=== PATIENT | female | born 1995 | race Caucasian/White ===

== ENCOUNTER 2023-02-08 06:39 | Day surgery (SDC) | payer OTHER ==
[~2023-02-08] VITALS: Ht 171.4 cm; Wt 76.7 kg
[2023-02-08] MEDS ORDERED: fentaNYL citrate 0.05 MG/ML VIAL ONE (08:05)
[2023-02-08] MEDS ORDERED: MIDAZOLAM 5 MG/5 ML VIAL ONE (08:05)
[2023-02-08] MEDS ORDERED: LIDOCAINE 2% 100 MG/5 ML UJET TP ONE (08:06)
[2023-02-08] MEDS ORDERED: fentaNYL citrate 0.05 MG/ML VIAL IVP ONE (11:50)
[2023-02-08] MEDS ORDERED: MIDAZOLAM 2 MG/2 ML VIAL IVP ONE (11:50)
== END 2023-02-08 09:39 | disposition home or self-care (01) ==
LOC: MDS 06:39 → MMU 06:40 → MDS 09:39
PROVIDERS: ATTEND Internal Medicine Gastroenterology
DX: R19.7 Diarrhea, unspecified (principal); F41.9 Anxiety disorder, unspecified; J45.909 Unspecified asthma, uncomplicated
CPT/HCPCS: 43235; 45380; J2250; J3010; 88305